=== PATIENT | male | born 1950 | race Two or more races ===

== ENCOUNTER 2017-05-23 13:24 | Emergency (ER) | payer MEDICAID, OTHER ==
[~2017-05-23] VITALS: Ht 167.6 cm; Wt 61.2 kg
[2017-05-23] MEDS ORDERED: AZITHROMYCIN 250 MG TABLET PO ONE (14:15)
--- NOTE | 2017-05-23 14:20 | NUR ---
Patient discharged to home in stable conditon. Written and verbal after care instructions given. Patient verbalizes understanding of instructions. Pt left ER w/ steady gait accompained by family.
[2017-05-23 14:22] VITALS: BP 150/85
[2017-05-23] MEDS ORDERED: AZITHROMYCIN 250 MG TABLET ONE (14:30)
== END 2017-05-23 14:23 | disposition home or self-care (01) ==
LOC: ER 13:26
DX: J02.9 Acute pharyngitis, unspecified (principal); F17.200 Nicotine dependence, unspecified, uncomplicated
CPT/HCPCS: 71045; 87400; 93005; 99285; A4663; Q0144